=== PATIENT | male | born 1980 | race African-American/Black ===

== ENCOUNTER 2018-01-23 20:26 | Emergency (ER) | payer OTHER ==
[2018-01-23] MEDS: KETOROLAC 60 MG/2 ML VIAL (J1885) IM (23:53)
[2018-01-23] MEDS: NORCO 5/325MG TABLET (BULK FOR ED) PO (23:53)
[2018-01-23] MEDS: METHOCARBAMOL 500 MG TAB PO (23:53)
== END 2018-01-24 00:20 | disposition home or self-care (01) ==
LOC: M ED 01-24 00:20
DX: S73.102A Unspecified sprain of left hip, initial encounter (principal); X58.XXXA Exposure to other specified factors, initial encounter; Y92.099 Unspecified place in other non-institutional residence as the place of occurrence of the external cause; Y93.9 Activity, unspecified; Y99.9 Unspecified external cause status; Z91.018 Allergy to other foods
CPT/HCPCS: J1885

== ENCOUNTER → 2018-02-19 | Outpatient (CLI) | payer OTHER ==
[~2018-02-19] MED LIST: CONRAY-43 43% 50ML VIAL (Q9960) As Ordered; PROHANCE 279.3MG/ML 5ML VIAL (A9576) As Ordered
== END ==
LOC: M RADPRO 06:30
DX: M25.552 Pain in left hip (principal); M16.12 Unilateral primary osteoarthritis, left hip
CPT/HCPCS: 27093

== ENCOUNTER 2019-08-18 04:47 | Emergency (ER) | payer OTHER ==
[~2019-08-18] VITALS: Ht 177.8 cm; Wt 86.4 kg
[~2019-08-18 04:47] MED LIST changes: -CONRAY-43 43% 50ML VIAL (Q9960) As Ordered; +HYDR-3715 PO; +IBUP-1022 PO; -PROHANCE 279.3MG/ML 5ML VIAL (A9576) As Ordered; +ROBA500T PO
[2019-08-18] MEDS ORDERED: LORA-674 PO (04:50)
[2019-08-18] MEDS ORDERED: ONDANSETRON 4MG/2ML VIAL (J2405) IV ONE (05:15)
[2019-08-18] MEDS ORDERED: NS 1,000 ML IV ONE (05:15)
[2019-08-18] MEDS ORDERED: MORPHINE 4 MG/ML 1ML VIAL/SYRINGE (J2270) IV ONE (05:15)
[2019-08-18 05:22] LABS: BASO # 0.1 10^3/uL (0.0-0.2); BASO % 0.8 % (0.0-1.0); EOS # 0.3 10^3/uL (0.0-0.5); EOS % 3.6 % (0.0-3.0); HEMATOCRIT 44.3 % (42.0-52.0); HEMOGLOBIN 14.1 g/dl (13.5-17.5); LYMPH # 3.2 10^3/uL (1.5-5.0); LYMPH % 41.1 % (24.0-44.0); MEAN CORPUSCULAR HEMOGLOBIN 30.5 pg (27.0-33.0); MEAN CORPUSCULAR HGB CONC 31.8 g/dl (32.0-36.5); MEAN CORPUSCULAR VOLUME 95.7 fl (80.0-96.0); MONO # 0.5 10^3/uL (0.0-0.8); MONO % 6.5 % (0.0-5.0); NEUTROPHILS # 3.7 10^3/uL (1.5-8.5); NEUTROPHILS % 47.6 % (36.0-66.0); PLATELET COUNT, AUTOMATED 257 10^3/uL (150-450); RED BLOOD COUNT 4.63 10^6/uL (4.30-6.10); WHITE BLOOD COUNT 7.7 10^3/uL (4.0-10.0)
[2019-08-18 05:45] LABS: ALBUMIN 3.7 GM/DL (3.2-5.2); ALT/SGPT 46 U/L (12-78); BILIRUBIN,DIRECT 0.3 MG/DL (0.0-0.2); BILIRUBIN,TOTAL 1.1 MG/DL (0.2-1.0); BLOOD UREA NITROGEN 15 MG/DL (7-18); CALCIUM LEVEL 9.5 MG/DL (8.5-10.1); CARBON DIOXIDE LEVEL 26 MEQ/L (21-32); CHLORIDE LEVEL 106 MEQ/L (98-107); CREATININE FOR GFR 1.21 MG/DL (0.70-1.30); GLOMERULAR FILTRATION RATE > 60.0 (>60); GLUCOSE, FASTING 115 MG/DL (70-100); LIPASE 207 U/L (73-393); POTASSIUM SERUM 4.4 MEQ/L (3.5-5.1); SODIUM LEVEL 139 MEQ/L (136-145); TOTAL PROTEIN 7.7 GM/DL (6.4-8.2)
--- NOTE | 2019-08-18 06:09 | REPVR ---
PROCEDURE INFORMATION: Exam: CT Abdomen And Pelvis Without Contrast Exam date and time: 08/18/2019 5:23 AM Age: 38 years old Clinical history: Abdominal pain; Flank; Right; Additional info: R flank pain TECHNIQUE: Imaging protocol: Computed tomography of the abdomen and pelvis without contrast. Radiation optimization: All CT scans at this facility use at least one of these dose optimization techniques: automated exposure control; mA and/or kV adjustment per patient size (includes targeted exams where dose is matched to clinical indication); or iterative reconstruction. COMPARISON: XA HIP ARTHROGRAM WITH MR-CT LEFT 02/19/2018 6:59 AM FINDINGS: Lungs: The visualized portions of the lung bases are normal. Liver: The unenhanced liver appears unremarkable. Gallbladder and bile ducts: The gallbladder is normal with no stones or biliary ductal dilation. Pancreas: The pancreas appears unremarkable. No pancreatic ductal dilation identified. Spleen: The unenhanced spleen appears unremarkable. Adrenals: The adrenal glands are normal. The adrenal glands are normal. Kidneys and ureters: There is mild right hydronephrosis. There is slight prominence of the right ureter throughout its length. No definite ureteral stones are identified. The left kidney appears unremarkable.The left ureter appears normal with no stones or hydronephrosis. Stomach and bowel: There is no dilation or thickening of the colon. The small bowel appears unremarkable. Appendix: A normal appendix is identified. Intraperitoneal space: There is no evidence of free intraperitoneal or pelvic fluid. There is no free intraperitoneal air. Vasculature: No aortic aneurysm. Lymph nodes: No lymphadenopathy is seen. Bladder: The bladder is collapsed. There is a 1-2 mm focus of calcification posteriorly to the right of midline in the bladder, which could represent a small stone in the right UVJ or in the lumen of the bladder. Reproductive: The prostate gland and seminal vesicles are normal. Bones/joints: No suspicious osseous lesions. No acute fractures or dislocations. Soft tissues: Unremarkable. IMPRESSION: 1. Mild right-sided hydronephrosis. No nephrolithiasis or definite ureteral stones identified, but there is a 1-2 mm calcification to the right of midline at the collapsed bladder, which may be a small stone in right UVJ or could be a recently passed stone in the bladder lumen. 2. Normal appearance of the appendix. Electronically signed by: Mia Rojas On 08/18/2019 06:08:59 AM
[2019-08-18] MEDS ORDERED: FLOM0.4C39 PO (06:48)
[2019-08-18 07:01] VITALS: BP 118/74
== END 2019-08-18 07:35 | disposition home or self-care (01) ==
LOC: M ED 04:47
DX: N20.1 Calculus of ureter (principal); Z79.899 Other long term (current) drug therapy; Z91.018 Allergy to other foods; Z87.891 Personal history of nicotine dependence
CPT/HCPCS: 74176; 80048; 80076; 81001; 83690; 85025; 96361; 96374; 96375; 99284; J2270; J2405